=== PATIENT | female | born 2000 | race Two or more races ===

== ENCOUNTER 2021-05-01 10:30 | Outpatient (CLI) | payer OTHER ==
[2021-05-01] MEDS ORDERED: PRENATAL CAPLE1 EAC1 PO (16:17)
== END 2021-05-01 12:00 | disposition home or self-care (01) ==
LOC: PRENATAL 10:30
PROVIDERS: ATTEND Obstetrics & Gynecology Maternal & Fetal Medicine
DX: O35.0XX1 Maternal care for (suspected) central nervous system malformation in fetus, fetus 1 (principal); O35.3XX1 Maternal care for (suspected) damage to fetus from viral disease in mother, fetus 1; O98.512 Other viral diseases complicating pregnancy, second trimester; Z36.89 Encounter for other specified antenatal screening; Z3A.25 25 weeks gestation of pregnancy

== ENCOUNTER 2021-05-01 14:58 | Inpatient (IN) | payer OTHER ==
[~2021-05-01] VITALS: Ht 157.5 cm; Wt 74.8 kg
[2021-05-01] MEDS ORDERED: PRENATAL CAPLE1 EAC1 PO (16:17)
== END 2021-05-22 09:49 | disposition home or self-care (01) | DRG 831 ==
LOC: LDR 14:58 → OB/GYN 05-02 15:44
PROVIDERS: ADMIT Obstetrics & Gynecology; ATTEND Obstetrics & Gynecology
PROC: 4A1HXFZ Monitoring of Products of Conception, Cardiac Rhythm, External Approach (ICD-10-PCS; principal; 2021-05-01)
PROC: BY4CZZZ Ultrasonography of Second Trimester, Single Fetus (ICD-10-PCS; 2021-05-20)
DX: O26.872 Cervical shortening, second trimester (principal); O60.02 Preterm labor without delivery, second trimester; Z3A.25 25 weeks gestation of pregnancy

== ENCOUNTER 2021-07-21 13:38 | Outpatient (CLI) | payer OTHER ==
[~2021-07-21 13:38] MED LIST: PRENATAL CAPLE1 EAC1 PO
== END 2021-07-21 17:52 | disposition home or self-care (01) ==
LOC: OBS/DEL 13:38
PROVIDERS: ATTEND Obstetrics & Gynecology
DX: O47.1 False labor at or after 37 completed weeks of gestation (principal); Z3A.37 37 weeks gestation of pregnancy